=== PATIENT | male | born 1980 | race Caucasian/White ===

== ENCOUNTER 2020-02-07 22:05 | Emergency (ER) | payer OTHER, SELFPAY ==
[2020-02-07 22:07] VITALS: BP 167/81; PULSE 88; RESP 20; TEMP 36.2; O2SAT 100
[2020-02-07 22:30] LABS: Add Urine Microscopic? YES; Appearance Urine Cloudy (Clear); Bacteria Urine Trace /hpf; Bilirubin Urine Negative (Negative); Blood Urine 3+ (Negative); Color Urine Yellow (Yellow); Glucose Urine UA 1+ mg/dL (Negative); Ketones Urine Negative (Negative); Leukocyte Esterase Ur 3+ LEU/UL (Negative); Mucus Urine Rare /lpf; Nitrate Urine Negative (Negative); Protein Urine 2+ mg/dL (Negative); RBC Urine >75 /hpf (0-2); Specific Grav Ur 1.026 (1.001-1.035); Squamous Epithelial Cell Urine Few /hpf (Few); Urobilinogen Urine Negative mg/dL (<2.0); WBC Urine >75 /hpf
--- NOTE | 2020-02-07 22:50 | ED.MALEGU ---
HPI - Male Genitourinary General Chief complaint: Urogenital-Male Stated complaint: peeing blood Time Seen by Provider: 02/07/20 22:50 History of Present Illness HPI Narrative: Dysuria and frequent urinatio nfor the past week. Hematuria today. Symptoms started after cutting the tip of his penis on his 's IUD while having sex. He did have a scratch on his peins. This has healed. No fever, retention, back pain. Related Data Allergies Allergy/AdvReac Type Severity Reaction Status Date / Time cefaclor [From Ceclor] Allergy Rash Verified 02/07/20 23:22 ofloxacin [From Floxin] Allergy Rash Verified 02/07/20 23:22 Penicillins Allergy Anaphylactic Verified 02/07/20 23:22 Shock Review of Systems Review of Systems: All systems reviewed & are unremarkable except as noted in HPI and below Constitutional: Constitutional: Denies fever(s) Cardiovascular: Cardiovascular: Denies chest pain Respiratory: Respiratory: Denies dyspnea Gastrointestinal: Gastrointestinal: Denies abdominal pain, Denies nausea and Denies vomiting Genitourinary: Genitourinary: Reports hematuria, Reports dysuria, Denies testicular pain and Reports urinary frequency Musculoskeletal: Musculoskeletal: Denies back pain [facility] Social History Social History Gender identity (if verbalized by the patient): Male Exam Const: General: healthy appearing, no acute distress and alert Nutritional Appearance: obese Orientation/consciousness: patient oriented x3 HENMT: Head: normal to inspection Neck: Neck: normal visual inspection and no lymphadenopathy Chest: Chest palpation & inspection: no tenderness Resp: Effort & Inspection: normal respiratory effort Auscultation: clear to auscultation bilaterally, no rales, no rhonchi and no wheezes Cardio: Jugular venous distension: no JVD Rate: regular rate Rhythm: regular rhythm Heart sounds: no murmurs GI: Inspection: non-distended GI Palp: Yes Soft to palpation and No Tenderness to palpation present (GI) : Male General Exam: Yes normal external exam and No Genital lesions present Penis: Yes circumcised Testes: no testicular tenderness Skin: General skin exam: normal color Neuro: General: patient oriented x3 and moves all extremities Speech: normal speech Extrem: General: no edema Psych: Appearance: well kempt Affect: normal affect Course Vital Signs Vital signs: Vital Signs Temperature 36.2 C L 02/07/20 22:07 Pulse Rate 88 08/05/20 22:07 Respiratory Rate 02/07/20 22:07 Blood Pressure 167/81 H 02/07/20 22:07 Pulse Oximetry 100 02/07/20 22:07 Temperature 36.2 C L 02/07/20 22:07 Pulse Rate 88 02/07/20 22:07 Respiratory Rate 02/07/20 22:07 Blood Pressure 167/81 H 02/07/20 22:07 Pulse Oximetry 100 02/07/20 22:07 MDM - Male Genitourinary MDM Narrative Medical decision making narrative: Normal exam. UA concerning for infection. I will treat as UTI. Medical Records Attestation: I reviewed the patient's medical records. Lab Data Attestation: I reviewed the patient's lab results. Labs: Lab Results 02/07/20 Range/Units 22:17 Urine Color Yellow (Yellow) Urine Appearance Cloudy H (Clear) Urine pH 5.0 (5.0-9.0) Ur Specific [place] 1.026 (1.001-1.035) Urine Protein 2+ H (Negative) mg/dL Urine Glucose (UA) 1+ H (Negative) mg/dL Urine Ketones Negative (Negative) mg/dL Ur Blood (Man) 3+ H (Negative) Urine Nitrate Negative (Negative) Urine Bilirubin Negative (Negative) Urine Urobilinogen Negative (<2.0) mg/dL Leukocyte Esterase Rfl 3+ H (Negative) RAYMOND/UL Urine RBC >75 H (0-2) /hpf Urine WBC >75 H /hpf Ur Squamous Epith Cells Few (Few) /hpf Urine Bacteria Trace /hpf Urine Mucus Rare /lpf Discharge Plan Discharge Clinical Impression: Urinary tract infection Patient Disposition: Home, Self-Care Condition: Stable Instructions: Antibiotic Form, Urinary Tract Infection in Me
[2020-02-07] MEDS: PHENAZOPYRIDINE HCL 100 MG TABLET 200 MG PO (23:19)
== END 2020-02-07 23:30 | disposition home or self-care (01) ==
PROVIDERS: Emergency Provider Emergency Medicine
DX: N39.0 Urinary tract infection, site not specified (principal)
CPT/HCPCS: 81001; 87086; 87088; 99283; A9270